=== PATIENT | male | born 1950 | race Caucasian/White ===

== ENCOUNTER 2016-11-26 13:18 | Emergency (ER) | payer MEDICARE ==
[2016-11-26] MEDS ORDERED: ONDANSETRON 4 MG TAB.RAPDIS PO ONE (13:37)
[2016-11-26] MEDS ORDERED: NORMAL SALINE 1000 ML 1,000 ML IV ONE (13:39)
--- NOTE | 2016-11-26 13:47 | ER Document Report ---
ED Fall - General Chief Complaint: Fall Stated Complaint: FALL/DIZZY Time seen by provider: 13:41 Notes: This is a fottp-vbrb-byhaksda 65-year-old male with a history of esophageal cancer and skin cancer that presents today with 2 syncopal episodes. Patient states that at 1100 this morning he was getting off the toilet and walking to his bedroom and suddenly felt dizzy. He stumbled and fell into the floor. He states he lost consciousness for a few seconds. He then walked to the bed and lay down and he felt like he needed to have another bowel movement. As he was getting off the bed to stand up he felt dizzy and walked to the bathroom. Patient states that he hit his head on the bathtub and passed out again for approximately a few seconds. EMS was called and they got a blood pressure of 119/75 pulse ox of 89% on room air. He was treated with albuterol and his pulse ox delmis to 97%. He does have a history of pneumonia which was diagnosed October last year. He did complete the antibiotic regimen prescribed. He was seen by Dr. Jey Goetz, who is a talent acquisition sourcer in [place], [place]. He has an appointment with him on December 17. His primary care physician is Dr. Ruy Pineda. Skin smoke 2 packs per day for the past 40 years and drinks 4- 5 glasses of vodka per night. Last drink was last night. Last chemotherapy treatment was in 2009. Patient currently denies chest pain. Patient does not take any blood thinners. Patient denies headache and neck pain. - Related data Allergies/Adverse Reactions: No Known Allergies Allergy (Unverified 11/26/16 13:56) Past Medical History - General Information source: Patient - Social History Smoking Status: Current Every Day Smoker - 2 packs per day for the past 40 years Lives with: Spouse/Significant other Family History: Reviewed & Not Pertinent Review of Systems - Review of Systems Constitutional: denies: Chills, Fever EENT: See HPI Cardiovascular: Syncope, Dizziness. denies: Chest pain Respiratory: Short of breath Gastrointestinal: No symptoms reported Genitourinary: No symptoms reported Musculoskeletal: See HPI Skin: See HPI Hematologic/Lymphatic: No symptoms reported Neurological/Psychological: No symptoms reported Physical Exam - Vital signs Vitals: Temp Pulse Resp BP Pulse Ox 95.9 F L 102 H 18 117/70 95 01/18/17 13:31 11/26/16 13:31 11/26/16 13:31 11/26/16 13:31 11/26/16 13:31 - General General appearance: Alert In distress: Mild - HEENT Head: Normocephalic Eyes: Normal Conjunctiva: Normal - Respiratory Respiratory status: No respiratory distress Chest status: Nontender Breath sounds: Wheezing - Expiratory wheezes heard bilaterally - Cardiovascular Rhythm: Regular Heart sounds: Normal auscultation - Abdominal Inspection: Normal Bowel sounds: Normal Tenderness: Nontender - Back Back: Nontender - Extremities General upper extremity: Normal inspection - Left hand laceration superficial on the dorsal aspect between index and middle finger, Tender, Normal strength, Normal temperature General lower extremity: Normal inspection, Nontender, Normal strength, Normal temperature - Neurological Cognition: Normal. No: Confused Orientation: AAOx4 - Psychological Associated symptoms: Normal affect, Normal mood - Skin Skin Temperature: Warm Skin Moisture: Dry Skin Color: Normal Course - Re-evaluation Re-evalutation: 11/26/16 14:28 Patient is able to speak in full sentences. He is alert and oriented 4. GCS score of 15. 11/26/16 16:33 He states that he has a follow-up appointment with the talent acquisition sourcer at his home on December 17. EKG shows sinus rhythm rate of 100 normal axis no signs of any blocks or ischemia. A she denies chest pain. Patient was strongly advised to quit smoking and to gradually decrease alcohol consumption. I told him that he should follow with his primary care physician for guidance regarding this advice. Patient was given multiple opportunities to ask questions. Patient stated that he felt good before discharge. Patient denied all pain with the exception of his left hand. Imaging results and labs were shared with the patient. He was given multiple opportunities to ask questions. - Vital Signs Vital signs: Temp Pulse Resp BP Pulse Ox 95.9 F L 102 H 14 139/75 H 100 11/26/16 13:31 11/26/16 13:31 11/26/16 17:52 11/26/16 17:52 11/26/16 17:52 - Laboratory Result Diagrams: 11/26/16 13:48 11/26/16 13:48 Laboratory results interpreted by me: 11/26/16 11/26/16 13:48 13:48 WBC 15.3 H RBC 4.33 L MCV 100 H RDW 15.2 H Seg Neuts % (Manual) 93 H Lymphocytes % (Manual) 1 L Metamyelocytes % 1 H Abs Neuts (Manual) 14.4 H Abs Lymphs (Manual) 0.2 L Sodium 130.5 L Chloride 92 L Carbon Dioxide 17 L Anion Gap 22 H Total Bilirubin 1.6 H AST 132 H Alkaline Phosphatase 194 H Creatine Kinase 49 L Discharge - Discharge Clinical Impression: Pulmonary infiltrate on radiologic exam Fracture of second metacarpal bone of left hand Qualifiers: Encounter type: initial encounter Fracture type: closed Metacarpal location: neck Fracture alignment: nondisplaced Qualified Code(s): S62.361A - Nondisplaced fracture of neck of second metacarpal bone, left hand, initial encounter for closed fracture Fall Qualifiers: Encounter type: initial encounter Qualified Code(s): W19.XXXA - Unspecified fall, initial encounter Syncope Qualifiers: Syncope type: unspecified Qualified Code(s): R55 - Syncope and collapse Condition: Stable Disposition: HOME, SELF-CARE Additional Instructions: Follow-up with talent acquisition sourcer as soon as possible. Return to the emergency department if symptoms worsen such as loss of consciousness, loss of motor function, etc. Syncopal Episode Syncope (fainting or near-fainting) can occur from many different health problems. Or it can be a simple fainting spell requiring no treatment. It is safe for you to go home, but further evaluation will likely be necessary. Your work-up may include tests for internal bleeding, heart disease, medication problems, or near-strokes. Tests are not always required, however, depending on the nature of your problem. The warning signs of an impending faint include: dizziness, lightheadedness , nausea, hot flashes, tingling, and weakness. If this happens, lay down and put your feet up, then wait until all of these symptoms have passed before standing up again. If these episodes become recurrent, or if you develop chest pain, heart palpitations, mental confusion, blurred vision, or headache, then you should call the physician, or go to the emergency room. Prescriptions: Levofloxacin [Levaquin 750 mg Tablet] 750 mg PO DAILY #5 tablet Referrals: [facility] [Provider Group] - Follow up as needed
[2016-11-26] MEDS ORDERED: IPRATROPIUM/ALBUTEROL 0.5-2.5 MG/3 ML AMPUL NEB ONE (13:52)
[2016-11-26 14:25] LABS: PROTHROMBIN TIME 12.2 SEC (11.4-15.4)
[2016-11-26 14:26] LABS: PARTIAL THROMBOPLASTIN TIME 24.3 SEC (23.5-35.8)
[2016-11-26 14:36] LABS: ALANINE AMINOTRANSFERASE 71 U/L (21-72); ALBUMIN 3.9 g/dL (3.5-5.0); ALKALINE PHOSPHATASE 194 U/L (38-126); ASPARTATE AMINO TRANSFERASE 132 U/L (17-59); BILIRUBIN,TOTAL 1.6 mg/dL (0.2-1.3); BLOOD UREA NITROGEN 13 mg/dL (7-20); CALCIUM 9.5 mg/dL (8.4-10.2); CARBON DIOXIDE 17 mmol/L (22-30); CHLORIDE 92 mmol/L (98-107); CREATINE KINASE 49 U/L (55-170); CREATININE RESULT 1.21 mg/dL (0.52-1.25); GLUCOSE 95 mg/dL (75-110); LIPASE 97.3 U/L (23-300); POTASSIUM 4.3 mmol/L (3.6-5.0); SODIUM 130.5 mmol/L (137-145); TOTAL PROTEIN 6.5 g/dL (6.3-8.2)
[2016-11-26 14:38] LABS: ANION GAP 22 (5-19)
[2016-11-26 14:39] LABS: HEMATOCRIT 43.4 % (37.9-51.0); HGB HCT DIFFERENCE -1.4; MEAN CORPUSCULAR HEMOGLOBIN 32.2 pg (27.0-33.4); MEAN CORPUSCULAR HGB CONC 32.1 g/dL (32.0-36.0); MEAN CORPUSCULAR VOLUME 100 fl (80-97); RED BLOOD COUNT 4.33 10^6/uL (4.35-5.55); RED CELL DISTRIBUTION WIDTH 15.2 % (11.5-14.0); WHITE BLOOD COUNT 15.3 10^3/uL (4.0-10.5)
[2016-11-26 14:45] LABS: CREATINE KINASE MB 1.73 ng/mL (<4.55); TROPONIN I < 0.012 ng/mL
[2016-11-26 15:22] LABS: ANISOCYTOSIS 1+; BASOPHILS % (MANUAL) 1 % (0-2); BURR CELLS 1+; EOSINOPHILS % (MANUAL) 0 % (0-6); LYMPHOCYTES % (MANUAL) 1 % (13-45); POIKILOCYTOSIS 1+; TOTAL CELLS COUNTED 100; TOXIC GRANULATION 2+
[2016-11-26] MEDS ORDERED: LEVOFLOXACIN 750 MG TABLET PO ONE (15:48)
--- NOTE | 2016-11-26 17:22 | ER Document Report ---
Doctor's Note Notes: 11/26/16 17:20 Patient independently seen and examined by myself all treatment decisions made by myself 65-year-old male reports 2 episodes of passing out while standing from a sitting position this morning. Does report history of heavy alcohol use recently last night. He denies chest pain, abdominal pain, or vomiting. Does report chronic cough. Chest few rhonchi bilaterally breath sounds equal heart regular rate and rhythm abdomen soft nontender nondistended no guarding rebound rigidity extremities warm and dry with mild tenderness over the hand but 2+ pulses in all extremities no edema Chest x-ray shows bilateral infiltrates versus mass. Patient does have a primary care physician and he'll be instructed to follow with him and placed on antibiotics in the interim but he will caution the chest x-ray needs to be followed to resolution and if not on antibiotics this will need to be rechecked. Patient sacral episodes likely due to volume depletion combined with alcohol use. Patient will have his hand splinted with follow-up with orthopedics
[2016-11-26 17:53] VITALS: BP 139/75
--- NOTE | 2016-11-26 18:39 | EKG REPORT ---
SEVERITY:- OTHERWISE NORMAL ECG - SINUS TACHYCARDIA : Confirmed by: Mark Anthony Chisholm MD 26-Nov-2016 18:38:42
== END 2016-11-26 18:29 | disposition home or self-care (01) ==
LOC: ER 13:18
DX: S62.361A Nondisplaced fracture of neck of second metacarpal bone, left hand, initial encounter for closed fracture (principal); R91.8 Other nonspecific abnormal finding of lung field; R55 Syncope and collapse; Z85.01 Personal history of malignant neoplasm of esophagus; Z85.828 Personal history of other malignant neoplasm of skin; W19.XXXA Unspecified fall, initial encounter
CPT/HCPCS: 93005; 94640; 99284; 96360; 36415; 87040; 82553; 80307; 82550; 83690; 85025; 85610; 85730; 80053; 84484; 71020; 73130; 70450; 93010; A9270 ×3; J7030; J7620; S0119

== ENCOUNTER 2017-03-23 10:32 | Inpatient (IN) | payer MEDICARE, OTHER ==
[2017-03-23] MEDS ORDERED: IPRATROPIUM/ALBUTEROL 0.5-2.5 MG/3 ML AMPUL NEB ONE (10:40)
[2017-03-23] MEDS ORDERED: ALBUTEROL SULFATE 0.083% NEB 2.5 MG/3 ML AMPUL NEB ONE (10:43)
--- NOTE | 2017-03-23 10:47 | ER Document Report ---
ED Respiratory Problem - General Stated Complaint: WEAKNESS Notes: This is a 66-year-old male who presents with increasing shortness of breath throughout the day. He has a history of lung cancer receiving chemotherapy about every 3 weeks for the last being 2 weeks ago. He has had near syncope with this. Denies fever. He has had cough but really has not changed much. Denies purulent sputum or hemoptysis. Denies any specific new chest pain. Currently is visiting from out of town. He states he is feeling slightly better with the oxygen. - Related Data Allergies/Adverse Reactions: No Known Allergies Allergy (Unverified 11/26/16 13:56) Past Medical History - Social History Smoking Status: Former Smoker Family History: Reviewed & Not Pertinent Review of Systems - Review of Systems Constitutional: See HPI EENT: No symptoms reported Cardiovascular: No symptoms reported Respiratory: See HPI, Short of breath. denies: Hemoptysis Gastrointestinal: No symptoms reported Genitourinary: No symptoms reported Male Genitourinary: No symptoms reported Musculoskeletal: No symptoms reported Skin: No symptoms reported Hematologic/Lymphatic: No symptoms reported Neurological/Psychological: No symptoms reported -: Yes All other systems reviewed and negative Physical Exam - Vital signs Vitals: Resp Pulse Ox 21 H 99 03/23/17 10:39 03/23/17 10:39 - Notes Notes: Physical Exam: GENERAL: VS as per nursing doc. thin male in moderate respiratory distress HEAD: Atraumatic, normocephalic. EYES: Pupils equal round and reactive to light, extraocular movements intact, sclera anicteric, no conjunctival injection or discharge. ENT: Nares patent, oropharynx clear without exudates. Moist mucous membranes. NECK: Normal range of motion, supple without lymphadenopathy. No JVD. No Carotid Bruits. LUNGS: Decreased breath sounds bilaterally with diffuse wheezing HEART: Normal S1S2. Regular rate and rhythm without murmurs. Equal peripheral pulses. ABDOMEN: Soft, non-tender. No pulsatile mass. EXTREMITIES: Normal range of motion. No calf tenderness. Negative Homans. No edema. NEUROLOGICAL: Cranial nerves grossly intact. Normal speech. Normal sensory and motor exams. No gross cerebellar abnormalities. PSYCH: Normal mood, normal affect. SKIN: Warm, dry, no cyanosis, no splinter hemorrhages. Cap refill < 2 sec. Course - Vital Signs Vital signs: Temp Pulse Resp BP Pulse Ox 98.5 F 110 H 18 136/85 H 99 03/23/17 16:58 03/23/17 16:58 03/23/17 16:58 03/23/17 16:58 03/23/17 16:58 - Laboratory Result Diagrams: 03/23/17 11:04 03/23/17 11:04 Laboratory results interpreted by me: 03/23/17 03/23/17 03/23/17 11:04 11:04 12:00 WBC 15.2 H RBC 2.86 L Hgb 9.1 L Hct 26.6 L RDW 15.5 H Plt Count 84 L Seg Neuts % (Manual) 91 H Band Neutrophils % 2 L Lymphocytes % (Manual) 1 L Abs Neuts (Manual) 14.1 H Abs Lymphs (Manual) 0.2 L Carbonic Acid 0.89 L ABG pH 7.53 H ABG pCO2 29.5 L ABG pO2 69.8 L Sodium 129.2 L Chloride 96 L - Diagnostic Test Radiology reviewed: Image reviewed - Left elevated diaphragm and left lower lobe infiltrate - EKG Interpretation by Me EKG shows normal: Sinus rhythm - Heart rate 108 sinus tachycardia probable left atrial enlargement and nonspecific ST abnormalities - Consults Dr. Atwood Time consulted: 13:33 - admission to [facility] Consulted provider: will see as inpatient Discharge - Discharge Clinical Impression: Dyspnea and respiratory abnormalities, Pneumonia Condition: Serious Disposition: ADMITTED INPATIENT Admitting Provider: Dr. Harris Atwood Unit Admitted: [facility]
[2017-03-23 11:31] LABS: PROTHROMBIN TIME 12.9 SEC (11.4-15.4)
[2017-03-23 11:32] LABS: HEMATOCRIT 26.6 % (37.9-51.0); HEMOGLOBIN 9.1 g/dL (13.5-17.0); HGB HCT DIFFERENCE 0.7; MEAN CORPUSCULAR HEMOGLOBIN 31.9 pg (27.0-33.4); MEAN CORPUSCULAR HGB CONC 34.2 g/dL (32.0-36.0); MEAN CORPUSCULAR VOLUME 93 fl (80-97); RED BLOOD COUNT 2.86 10^6/uL (4.35-5.55); RED CELL DISTRIBUTION WIDTH 15.5 % (11.5-14.0); WHITE BLOOD COUNT 15.2 10^3/uL (4.0-10.5)
[2017-03-23 11:48] LABS: ANION GAP 9 (5-19); BLOOD UREA NITROGEN 15 mg/dL (7-20); CALCIUM 8.8 mg/dL (8.4-10.2); CARBON DIOXIDE 24 mmol/L (22-30); CHLORIDE 96 mmol/L (98-107); GLUCOSE 103 mg/dL (75-110); POTASSIUM 3.6 mmol/L (3.6-5.0); SODIUM 129.2 mmol/L (137-145)
[2017-03-23 12:11] LABS: BAND NEUTROPHILS % (MANUAL) 2 % (3-5); BASOPHILS % (MANUAL) 0 % (0-2); EOSINOPHILS % (MANUAL) 0 % (0-6); LYMPHOCYTES % (MANUAL) 1 % (13-45); TOTAL CELLS COUNTED 100
[2017-03-23] MEDS ORDERED: PIPERACILLIN/TAZOBACTAM 3.375 GM VIAL IV ONE (12:11)
[2017-03-23 12:20] LABS: ANISOCYTOSIS SLIGHT; BURR CELLS 1+; OVALOCYTES 1+; POIKILOCYTOSIS 1+; POLYCHROMASIA SLIGHT; SCHISTOCYTES SLIGHT; TOXIC GRANULATION 2+
[2017-03-23 12:23] LABS: ARTERIAL BLOOD BASE EXCESS 1.7 mmol/L; ARTERIAL BLOOD O2 SATURATION 95.8 % (94-98)
[2017-03-23 12:29] LABS: TROPONIN I < 0.012 ng/mL
[2017-03-23] MEDS ORDERED: ACETAMINOPHEN 325 MG TABLET PO PRN (14:37)
[2017-03-23] MEDS ORDERED: ONDANSETRON HCL INJ/PF 4 MG/2 ML SDV IV PRN (14:37)
[2017-03-23] MEDS: LORAZEPAM INJ 2 MG/1 ML VIAL IV PRN (16:06)
[2017-03-23] MEDS: AZITHROMYCIN 500 MG in DEXTROSE 5%-WATER 250 ML IV SCH (16:09)
--- NOTE | 2017-03-23 17:05 | PDOC H&P ---
History of Present Illness Admission Date/PCP: 03/23/17 14:37 JEROME MARIANO MD Patient complains of: Dyspnea, near-syncope History of Present Illness: DAVE PFEIFFER is a 66 year old male with past medical history of stage IV lung cancer on palliative chemotherapy by Dr. Liao of oncology at [facility] presents to the emergency department with worsening severe dyspnea on exertion and near syncopal episode. Patient states the patient diagnosed with lung cancer and particularly since being recently discharged from [facility] for pneumonia a couple weeks ago he has had severe dyspnea on exertion to the point that he almost feels like he wants to pass out. He states that wearing oxygen made him feel better however he apparently did not qualify for home oxygen at time of hospital discharge. About one week after being discharged from the hospital he received chemotherapy again. Since receiving chemotherapy he has received Neulasta. Patient was brought to the emergency department by EMS after experiencing dyspnea and nursing for episode. EMS noted him to have room air O2 sat of 87%. It's also notable in patient's history that he has had difficulty speaking. He has seen an ear nose and throat doctor that told him he had paralysis of his left vocal cord this sounds like it may be related to a recurrent laryngeal nerve issue given his left hilar mass. Past Medical History Pulmonary Medical History: Reports: Pneumonia Malignancy Medical History: Reports: Lung Cancer, Other - Esophageal cancer Psychiatric Medical History: Reports: General Anxiety Disorder Past Surgical History Past Surgical History: Reports: Vascular Surgery - left port, Other - Left chest Port-A-Cath Social History Information Source: Patient Lives with: Spouse/Significant other Smoking Status: Former Smoker - Advance Directive Resuscitation Status: Full Code Family History Family History: Reviewed & Not Pertinent Parental Family History Reviewed: Yes Children Family History Reviewed: Yes Sibling(s) Family History Reviewed.: Yes Medication/Allergy Home Medications: Levofloxacin [Levaquin 750 mg Tablet] 750 mg PO DAILY #5 tablet 11/26/16 Allergies/Adverse Reactions: No Known Allergies Allergy (Unverified 11/26/16 13:56) Review of Systems Constitutional: ABSENT: chills, fever(s), headache(s), weight gain, weight loss Eyes: ABSENT: visual disturbances Ears: ABSENT: hearing changes Cardiovascular: PRESENT: dyspnea on exertion. ABSENT: chest pain, edema, orthropnea, palpitations Respiratory: ABSENT: cough, hemoptysis Gastrointestinal: ABSENT: abdominal pain, constipation, diarrhea, hematemesis, hematochezia, nausea, vomiting Genitourinary: ABSENT: dysuria, hematuria Musculoskeletal: ABSENT: joint swelling Integumentary: ABSENT: rash, wounds Neurological: PRESENT: dizziness - With ambulation, other - Difficulty ambulating secondary to generalized weakness. ABSENT: abnormal gait, abnormal speech, confusion, focal weakness, syncope Psychiatric: PRESENT: anxiety. ABSENT: depression, homidical ideation, suicidal ideation Endocrine: ABSENT: cold intolerance, heat intolerance, polydipsia, polyuria Hematologic/Lymphatic: ABSENT: easy bleeding, easy bruising Physical Exam Vital Signs: Temp Pulse Resp BP Pulse Ox 98.8 F 25 H 134/85 H 98 03/23/17 16:39 03/23/17 16:01 03/23/17 16:01 03/23/17 16:01 PHYSICAL EXAM: GENERAL: Appears well, no acute distress, cachectic HEENT: Normocephalic, no scleral icterus, conjunctiva clear, EOEM intact, PERRLA , moist mucous membranes NECK: trachea midline, no thyromegally RESPIRATORY: Clear to auscultation, no wheezes/rhonchi CARDIAC: Regular rate and rhythm, no murmur/ian/rub ABDOMEN: Soft, no distension, no tenderness, no guarding, normal bowel sounds, negative Ferreira sign RECTAL: deferred : deferred EXTREMITIES: No edema, cyanosis, clubbing MUSCULOSKELETAL: No joint swelling or deformity VASCULAR: normal peripheral pulses NEUROLOGIC: Alert, oriented to person/place/time, normal speech, cranial nerves grossly intact, 5/5 strength in all extremities, tactile sensation intact in all extremities SKIN: No rash, no wounds, no worrisome skin lesions. Left chest port accessed PSYCHIATRIC: Normal mood, normal affect Results Laboratory Results: Labs- All tests 24 hr 03/23/17 03/23/17 03/23/17 11:04 11:04 11:04 WBC 15.2 H RBC 2.86 L Hgb 9.1 L Hct 26.6 L MCV 93 MCH 31.9 MCHC 34.2 RDW 15.5 H Plt Count 84 L Total Counted 100 Seg Neutrophils % Not Reportable Seg Neuts % (Manual) 91 H Band Neutrophils % 2 L Lymphocytes % Not Reportable Lymphocytes % (Manual) 1 L Monocytes % Not Reportable Monocytes % (Manual) 6 Eosinophils % Not Reportable Eosinophils % (Manual) 0 Basophils % Not Reportable Basophils % (Manual) 0 Absolute Neutrophils Not Reportable Abs Neuts (Manual) 14.1 H Absolute Lymphocytes Not Reportable Abs Lymphs (Manual) 0.2 L Absolute Monocytes Not Reportable Abs Monocytes (Manual) 0.9 Absolute Eosinophils Not Reportable Absolute Eos (Manual) 0.0 Absolute Basophils Not Reportable Abs Basophils (Manual) 0.0 Toxic Granulation 2+ Dohle Bodies PRESENT Platelet Comment DECREASED Polychromasia SLIGHT Poikilocytosis 1+ Basophilic Stippling PRESENT Anisocytosis SLIGHT Pappenheimer Bodies PRESENT Ovalocytes 1+ Yamilex Cells 1+ Schistocytes SLIGHT PT 12.9 INR 0.95 Carbonic Acid HCO3/H2CO3 Ratio ABG pH ABG pCO2 ABG pO2 ABG HCO3 ABG Total CO2 ABG O2 Saturation ABG Base Excess FiO2 Sodium 129.2 L Potassium 3.6 Chloride 96 L Carbon Dioxide 24 Anion Gap 9 BUN 15 Creatinine 0.60 Est GFR ( Amer) > 60 Est GFR (Non-Af Amer) > 60 Glucose 103 Lactic Acid Calcium 8.8 Troponin I NT-Pro-B Natriuret Pep 03/23/17 03/23/17 03/23/17 11:04 11:29 12:00 WBC RBC Hgb Hct MCV MCH MCHC RDW Plt Count Total Counted Seg Neutrophils % Seg Neuts % (Manual) Band Neutrophils % Lymphocytes % Lymphocytes % (Manual) Monocytes % Monocytes % (Manual) Eosinophils % Eosinophils % (Manual) Basophils % Basophils % (Manual) Absolute Neutrophils Abs Neuts (Manual) Absolute Lymphocytes Abs Lymphs (Manual) Absolute Monocytes Abs Monocytes (Manual) Absolute Eosinophils Absolute Eos (Manual) Absolute Basophils Abs Basophils (Manual) Toxic Granulation Dohle Bodies Platelet Comment Polychromasia Poikilocytosis Basophilic Stippling Anisocytosis Pappenheimer Bodies Ovalocytes [place] Cells Schistocytes PT INR Carbonic Acid 0.89 L HCO3/H2CO3 Ratio 26:1 ABG pH 7.53 H ABG pCO2 29.5 L ABG pO2 69.8 L ABG HCO3 23.9 ABG Total CO2 24.8 ABG O2 Saturation 95.8 ABG Base Excess 1.7 FiO2 4.5L Sodium Potassium Chloride Carbon Dioxide Anion Gap BUN Creatinine Est GFR ( Amer) Est GFR (Non-Af Amer) Glucose Lactic Acid 1.8 Calcium Troponin I < 0.012 NT-Pro-B Natriuret Pep 345 Impressions: Chest X-Ray 03/23/17 10:41 IMPRESSION: 1. Possible left upper lobe and lower lobe infiltrates. 2. Possible left upper lobe mass. See discussion above. Assessment & Plan - Diagnosis (1) Acute on chronic respiratory failure with hypoxemia Is this a current diagnosis for this admission?: YesPlan: Likely multifactorial nature to include lung cancer, pneumonia, COPD. Continue oxygen supplementation. Arrange for home oxygen upon discharge. Room air O2 sat 87%. (2) Systemic inflammatory response syndrome Is this a current diagnosis for this admission?: YesPlan: Likely secondary to pneumonia. (3) Pneumonia Is this a current diagnosis for this admission?: YesPlan: Likely bacterial. Healthcare associated given recent hospitalization at [facility]. Start IV Zosyn and IV azithromycin. Also must consider potential anaerobic organisms and postobstructive process given lung mass. Check blood cultures and sputum culture. (4) Lung cancer Is this a current diagnosis for this admission?: YesPlan: Patient is followed by Dr. Liao at [facility] oncology. His last chemotherapy was 2 weeks ago after which she received Neulasta. He is to follow-up with his oncologist after discharge. Patient has been taking Augmentin as an outpatient and was on Levaquin prior to that. I may consider using another agent upon discharge. (5) Anxiety Is this a current diagnosis for this admission?: YesPlan: When necessary Ativan. (6) Hyponatremia Is this a current diagnosis for this admission?: YesPlan: Likely related to lung cancer. Hydrate patient with normal saline. Repeat chemistry panel in the morning. (7) Anemia Is this a current diagnosis for this admission?: YesPlan: Likely related to malignancy. Check anemia panel. (8) Near syncope Is this a current diagnosis for this admission?: YesPlan: Likely multifactorial in nature most notable of which is hypoxemia worsened by exertion. This will be corrected by oxygen supplementation. We will also treat pneumonia. (9) Ambulatory dysfunction Is this a current diagnosis for this admission?: YesPlan: Arrange home physical therapy upon discharge. (10) Vocal cord paralysis, unilateral partial Is this a current diagnosis for this admission?: YesPlan: Likely secondary to recurrent laryngeal nerve involvement of left hilar mass. - Time Time Spent: Greater than 70 Minutes Anticipated discharge: Home with Homehealth Within: within 48 hours
[2017-03-23] MEDS: NORMAL SALINE 1000 ML 1,000 ML IV PRN (17:41)
[2017-03-23 18:24] LABS: FOLATE 6.29 ng/mL (>2.76)
[2017-03-23] MEDS: PIPERACILLIN SODIUM/TAZOBACTAM 3.375 GM in NORMAL SALINE 100 ML IV SCH ×2 (19:16→23:34)
--- NOTE | 2017-03-23 20:37 | EKG REPORT ---
SEVERITY:- BORDERLINE ECG - SINUS TACHYCARDIA PROBABLE LEFT ATRIAL ABNORMALITY : Confirmed by: Josi Mccord 23-Mar-2017 20:36:53
[2017-03-23] MEDS: ALBUTEROL SULFATE 0.083% NEB 2.5 MG/3 ML AMPUL NEB PRN (21:01)
[2017-03-23] MEDS: GUAIFENESIN 600 MG TABLET.SA PO SCH (21:18)
[2017-03-24] MEDS: PIPERACILLIN SODIUM/TAZOBACTAM 3.375 GM in NORMAL SALINE 100 ML IV SCH ×4 (05:21→23:16)
[2017-03-24 05:50] LABS: HEMATOCRIT 22.7 % (37.9-51.0); HGB HCT DIFFERENCE 1.3; MEAN CORPUSCULAR HEMOGLOBIN 32.4 pg (27.0-33.4); MEAN CORPUSCULAR HGB CONC 35.3 g/dL (32.0-36.0); MEAN CORPUSCULAR VOLUME 92 fl (80-97); RED BLOOD COUNT 2.47 10^6/uL (4.35-5.55); RED CELL DISTRIBUTION WIDTH 15.3 % (11.5-14.0); WHITE BLOOD COUNT 10.1 10^3/uL (4.0-10.5)
[2017-03-24 05:55] LABS: ANION GAP 6 (5-19); BLOOD UREA NITROGEN 9 mg/dL (7-20); CALCIUM 7.9 mg/dL (8.4-10.2); CARBON DIOXIDE 26 mmol/L (22-30); CHLORIDE 100 mmol/L (98-107); CREATININE RESULT 0.62 mg/dL (0.52-1.25); GLUCOSE 84 mg/dL (75-110); POTASSIUM 3.2 mmol/L (3.6-5.0)
[2017-03-24 06:26] LABS: ANISOCYTOSIS SLIGHT; BAND NEUTROPHILS % (MANUAL) 1 % (3-5); BASOPHILS % (MANUAL) 0 % (0-2); EOSINOPHILS % (MANUAL) 1 % (0-6); LYMPHOCYTES % (MANUAL) 3 % (13-45); NUCLEATED RED BLOOD CELLS 1 /100 WBC (0); TOTAL CELLS COUNTED 100; TOXIC GRANULATION 2+
[2017-03-24 06:27] LABS: POLYCHROMASIA SLIGHT
[2017-03-24 06:28] LABS: OVALOCYTES SLIGHT; POIKILOCYTOSIS 1+; TARGET CELLS SLIGHT
[2017-03-24 06:30] LABS: BURR CELLS SLIGHT
[2017-03-24] MEDS ORDERED: NORMAL SALINE 250 ML IV PRN ×2 (08:58)
[2017-03-24] MEDS: ALBUTEROL SULFATE 0.083% NEB 2.5 MG/3 ML AMPUL NEB PRN (09:01)
[2017-03-24] MEDS: GUAIFENESIN 600 MG TABLET.SA PO SCH ×2 (09:33→22:54)
--- NOTE | 2017-03-24 13:09 | PDOC PROGRESS REPORT ---
Subjective Progress Note for:: 03/24/17 Subjective:: Patient continues to have weakness and shortness of breath. He feels only marginally better than yesterday. He has been having some sinus tachycardia this morning per nursing staff as noted on telemetry. Nursing states the patient reported drinking alcohol on a daily basis (approximately 4 drinks per day). Physical Exam Vital Signs: Temp Pulse Resp BP Pulse Ox 98.0 F 97 19 120/82 100 03/24/17 11:49 03/24/17 11:49 03/24/17 11:49 03/24/17 11:49 03/24/17 11:49 Intake & Output 03/23/17 03/24/17 03/25/17 06:59 06:59 06:59 Intake Total 1620 237 Output Total 1150 400 Balance 470 -163 Weight 55.7 kg Results Laboratory Results: 03/24/17 04:31 03/24/17 04:31 03/24/17 03/24/17 03/24/17 04:31 04:31 09:08 WBC 10.1 RBC 2.47 L Hgb 8.0 L Hct 22.7 L MCV 92 MCH 32.4 MCHC 35.3 RDW 15.3 H Plt Count 84 L Seg Neutrophils % Not Reportable Lymphocytes % Not Reportable Monocytes % Not Reportable Eosinophils % Not Reportable Basophils % Not Reportable Absolute Neutrophils Not Reportable Absolute Lymphocytes Not Reportable Absolute Monocytes Not Reportable Absolute Eosinophils Not Reportable Absolute Basophils Not Reportable Sodium 132.0 L Potassium 3.2 L Chloride 100 Carbon Dioxide 26 Anion Gap 6 BUN 9 Creatinine 0.62 Est GFR ( Amer) > 60 Est GFR (Non-Af Amer) > 60 Glucose 84 Calcium 7.9 L Blood Type AB POSITIVE Antibody Screen NEGATIVE 03/23/17 19:30 Sputum Gram Stain - Final 03/23/17 19:30 Sputum Sputum Culture - Final Impressions: Chest X-Ray 03/23/17 10:41 IMPRESSION: 1. Possible left upper lobe and lower lobe infiltrates. 2. Possible left upper lobe mass. See discussion above. Assessment & Plan - Diagnosis (1) Acute on chronic respiratory failure with hypoxemia Is this a current diagnosis for this admission?: YesPlan: Likely multifactorial nature to include lung cancer, pneumonia, COPD. Continue oxygen supplementation. Arrange for home oxygen upon discharge. Room air O2 sat 87%. (2) Systemic inflammatory response syndrome Is this a current diagnosis for this admission?: YesPlan: Likely secondary to pneumonia. White blood count now normal in patient's afebrile. (3) Pneumonia Is this a current diagnosis for this admission?: YesPlan: Likely bacterial. Healthcare associated given recent hospitalization at [facility]. Continue IV Zosyn and IV azithromycin. Also must consider potential anaerobic organisms and postobstructive process given lung mass. Blood cultures and sputum culture pending. (4) Lung cancer Is this a current diagnosis for this admission?: YesPlan: Patient is followed by Dr. Liao at [facility] oncology. His last chemotherapy was 2 weeks ago after which she received Neulasta. He is to follow-up with his oncologist after discharge. I have attempted to call oncologist office ([phone]) on 2 occasions today unsuccessfully. Patient has been taking Augmentin as an outpatient and was on Levaquin prior to that. I may consider using another agent upon discharge. (5) Anxiety Is this a current diagnosis for this admission?: YesPlan: When necessary Ativan. (6) Hyponatremia Is this a current diagnosis for this admission?: YesPlan: Likely related to lung cancer. Hydrate patient with normal saline. Repeat chemistry panel in the morning. (7) Anemia Is this a current diagnosis for this admission?: YesPlan: Likely related to malignancy. Check anemia panel. Start iron supplementation. Transfuse 1 unit PRBC. (8) Near syncope Is this a current diagnosis for this admission?: YesPlan: Likely multifactorial in nature most notable of which is hypoxemia worsened by exertion. This will be corrected by oxygen supplementation. We will also treat pneumonia. (9) Ambulatory dysfunction Is this a current diagnosis for this admission?: YesPlan: Arrange home physical therapy upon discharge. (10) Vocal cord paralysis, unilateral partial Is this a current diagnosis for this admission?: YesPlan: Likely secondary to recurrent laryngeal nerve involvement of left hilar mass. (11) Alcohol use Is this a current diagnosis for this admission?: YesPlan: Patient is having some sinus tachycardia today. Last alcohol use almost 48 hours ago. Monitor for signs of withdrawal. (12) Sinus tachycardia Is this a current diagnosis for this admission?: YesPlan: Likely multifactorial to include infection, anemia, anxiety, possible early alcohol withdrawal. - Time Time Spent with patient: 35 or more minutes Anticipated discharge: Home with Homehealth Within: within 48 hours
[2017-03-24] MEDS ORDERED: LANSOPRAZOLE 30 MG TAB.RAP.DR PO ONE (14:45)
[2017-03-24] MEDS: AZITHROMYCIN 500 MG in DEXTROSE 5%-WATER 250 ML IV SCH (15:33)
[2017-03-24] MEDS: DEXAMETHASONE 4 MG TABLET PO SCH (17:47)
[2017-03-24] MEDS: DOCUSATE SODIUM 100 MG CAPSULE PO SCH (17:51)
[2017-03-24] MEDS: LORAZEPAM INJ 2 MG/1 ML VIAL IV PRN (18:04)
[2017-03-24 18:11] LABS: HEMATOCRIT 26.3 % (37.9-51.0); HEMOGLOBIN 9.1 g/dL (13.5-17.0); MEAN CORPUSCULAR HEMOGLOBIN 31.6 pg (27.0-33.4); MEAN CORPUSCULAR HGB CONC 34.5 g/dL (32.0-36.0); MEAN CORPUSCULAR VOLUME 92 fl (80-97); RED BLOOD COUNT 2.87 10^6/uL (4.35-5.55); RED CELL DISTRIBUTION WIDTH 15.1 % (11.5-14.0); WHITE BLOOD COUNT 7.8 10^3/uL (4.0-10.5)
[2017-03-24] MEDS: NORMAL SALINE 1000 ML 1,000 ML IV PRN (23:16)
[2017-03-25 00:46] VITALS: BP 131/84
[2017-03-25] MEDS: PIPERACILLIN SODIUM/TAZOBACTAM 3.375 GM in NORMAL SALINE 100 ML IV SCH ×2 (06:00→12:00)
[2017-03-25] MEDS ORDERED: LANSOPRAZOLE 30 MG TAB.RAP.DR PO SCH (06:00)
[2017-03-25] MEDS: DEXAMETHASONE 4 MG TABLET PO SCH (08:00)
[2017-03-25] MEDS: GUAIFENESIN 600 MG TABLET.SA PO SCH (10:00)
[2017-03-25] MEDS ORDERED: FERROUS SULFATE 325 MG TABLET PO SCH (10:00)
[2017-03-25] MEDS: DOCUSATE SODIUM 100 MG CAPSULE PO SCH (10:00)
--- NOTE | 2017-03-26 09:48 | DISCHARGE SUMMARY E ---
Discharge Summary NAME: DAVE PFEIFFER : 1950 AGE: 66Y ADMITTED: 03/23/2017 DISCHARGED: 03/25/2017 DISCHARGE DIAGNOSES: 1. Acute on chronic hypoxemic respiratory failure. 2. Systemic inflammatory response syndrome. 3. Pneumonia. 4. Lung cancer. 5. Anxiety. 6. Hyponatremia. 7. Anemia. 8. Near syncope. 9. Ambulatory dysfunction. 10. Unilateral vocal cord paralysis related to chest malignancy. DISCHARGE MEDICATIONS: The patient can resume previous home medications which include: 1. Compazine 10 mg q.6 h. p.r.n. 2. Decadron 4 mg twice daily. 3. Albuterol HFA q.6 h. p.r.n. 4. Protonix 40 mg daily. 5. Zofran 8 mg q.12 h. as needed for nausea. He is prescribed also: 6. Colace 100 mg twice daily. 7. Iron sulfate 325 mg daily. 8. Doxycycline 100 mg twice daily. HISTORY OF PRESENT ILLNESS: Refer to admission history and physical. In summary, the patient has what sounds like stage-4 lung cancer for which he is under the care of Dr. Liao of Oncology at [facility] with palliative chemotherapy. He was hospitalized a few weeks ago for pneumonia and was subsequently given chemotherapy about 1 week post hospitalization. He has felt weak since then, and he has had difficulty ambulating and feeling like he almost wants to pass out when he tries to ambulate. He was found by EMS to have O2 saturation on room air of 87% and was brought to the emergency department where he was also found to have, in addition to his known left lung mass, a left upper and lower airspace disease. HOSPITAL COURSE: The patient was admitted for acute on chronic hypoxemic respiratory failure and left lung field pneumonia that was a complication of his known left lung malignancy. He was initially treated with IV Zosyn and azithromycin and clinically improved. He is going to be discharged on oral doxycycline. Given his hypoxemia and symptoms mentioned above, he has been arranged home oxygen on discharge. He has an appointment in 1 day to see his oncologist. DISCHARGE CONDITION: Stable. PHYSICAL EXAMINATION AT THE TIME OF DISCHARGE: VITAL SIGNS: At the time of discharge temperature 97.8, blood pressure 126/84, pulse 80, respiratory rate is 20, O2 saturation is 96% on 2 liters nasal cannula. GENERAL: He is frail, elderly appearing, in no acute distress. HEENT: Sclera is nonicteric. Oropharynx has moist mucous membranes. NECK: No JVD. RESPIRATORY: He has scattered rhonchi throughout the left lung field. CARDIAC: Regular rate/rhythm. ABDOMEN: Soft, nontender. EXTREMITIES: No edema. TIME SPENT: Thirty minutes spent on discharge of patient. DICTATING PHYSICIAN: LINDA BRITO M.D. [id number] PHY#: [id number] ID: [id number] JOB#: [id number] ACCT: [id number] cc:LINDA BRITO >
[2017-03-26 11:59] LABS: HEMATOCRIT 23.6 % (37.9-51.0); HEMOGLOBIN 8.3 g/dL (13.5-17.0); HGB HCT DIFFERENCE 1.3; MEAN CORPUSCULAR HEMOGLOBIN 32.1 pg (27.0-33.4); MEAN CORPUSCULAR HGB CONC 35.1 g/dL (32.0-36.0); MEAN CORPUSCULAR VOLUME 92 fl (80-97); RED BLOOD COUNT 2.58 10^6/uL (4.35-5.55); RED CELL DISTRIBUTION WIDTH 14.8 % (11.5-14.0); WHITE BLOOD COUNT 6.6 10^3/uL (4.0-10.5)
[2017-03-26 12:01] LABS: BAND NEUTROPHILS % (MANUAL) 1 % (3-5); BASOPHILS % (MANUAL) 0 % (0-2); EOSINOPHILS % (MANUAL) 0 % (0-6); LYMPHOCYTES % (MANUAL) 1 % (13-45); POLYCHROMASIA SLIGHT; TOTAL CELLS COUNTED 100; TOXIC GRANULATION 2+
[2017-03-28 20:00] LABS: ANION GAP 7 (5-19); BLOOD UREA NITROGEN 10 mg/dL (7-20); CARBON DIOXIDE 25 mmol/L (22-30); CHLORIDE 99 mmol/L (98-107); CREATININE RESULT 0.56 mg/dL (0.52-1.25); GLUCOSE 164 mg/dL (75-110); POTASSIUM 3.2 mmol/L (3.6-5.0); SODIUM 130.6 mmol/L (137-145)
== END 2017-03-25 12:45 | disposition home or self-care (01) | DRG 190 ==
LOC: ER 10:32 → EH 14:04 → UNDOADMIN 14:04 → EH 14:37 → 3S 16:51
PROVIDERS: ADMIT Family Medicine; ATTEND Family Medicine
PROC: 30233N1 Transfusion of Nonautologous Red Blood Cells into Peripheral Vein, Percutaneous Approach (ICD-10-PCS; principal; 2017-03-24)
DX: J44.0 Chronic obstructive pulmonary disease with (acute) lower respiratory infection (principal); J96.21 Acute and chronic respiratory failure with hypoxia; J18.9 Pneumonia, unspecified organism; C34.92 Malignant neoplasm of unspecified part of left bronchus or lung; E87.1 Hypo-osmolality and hyponatremia; F41.1 Generalized anxiety disorder; Z79.899 Other long term (current) drug therapy; Z85.01 Personal history of malignant neoplasm of esophagus; R55 Syncope and collapse; D63.0 Anemia in neoplastic disease; J38.00 Paralysis of vocal cords and larynx, unspecified; R00.0 Tachycardia, unspecified; Z99.81 Dependence on supplemental oxygen; Z95.9 Presence of cardiac and vascular implant and graft, unspecified
CPT/HCPCS: 36415; 36430; 36591; 36600; 71010; 80048; 82607; 82728; 82746; 82803; 83540; 83550; 83605; 83880; 84466; 84484; 85025; 85027; 85045; 85610; 86850; 86900; 86901; 86920; 87040; 87070; 87077; 87205; 93005; 93010; 94640; 96365; 99285; J0456; J1642; J2060; J2543; J3490; J7030; J7060; J7620; P9016